=== PATIENT | male | born 1950 | race Caucasian/White ===

== ENCOUNTER 2016-09-02 10:50 | Emergency (ER) | payer BC ==
[2016-09-02] MEDS ORDERED: Nitroglycerin TAB 0.4 MG* 0.4 MG TAB SL ONE (11:24)
[2016-09-02] MEDS ORDERED: Aspirin Low Dose CHEW TAB* 81 MG PO ONE (11:24)
[2016-09-02] MEDS ORDERED: NS 0.9% 1000 ML* 1,000 ML IV SCH (11:30)
[2016-09-02 11:31] LABS: Hematocrit 44 % (42-52); Hemoglobin 14.6 g/dl (14.0-18.0); Mean Corpuscular HGB Conc 33 g/dl (31-36); Mean Corpuscular Hemoglobin 29 pg (27-31); Mean Corpuscular Volume 88 fL (80-94); Mean Platelet Volume 8 um3 (7.4-10.4); Red Blood Count 5.05 10^6/ul (4.0-5.4); Red Cell Distribution Width 13 % (10.5-15); White Blood Count 4.3 10^3/ul (3.5-10.8)
[2016-09-02 11:43] LABS: Albumin 4.4 g/dL (3.2-5.2); BUN/Creatinine Ratio 20.9 (8-20); C Reactive Protein 1.48 mg/L (< 5.00); Calcium 9.4 mg/dL (8.6-10.3); EGFR African American 107.5 (>60); EGFR Non-African American 83.6 (>60); Globulin 3.3 g/dL (2-4); Magnesium 2.1 mg/dL (1.9-2.7); Potassium 4.2 mmol/L (3.5-5.0); Total Bilirubin 0.8 mg/dL (0.2-1.0); Total Protein 7.7 g/dL (6.4-8.9)
[2016-09-02 11:45] LABS: Troponin I 0.01 ng/mL (<0.04)
[2016-09-02 12:14] LABS: TSH (Thyroid Stimulating Horm) 3.26 mcIU/mL (0.34-5.60)
--- NOTE | 2016-09-02 12:19 | RAD ---
HISTORY: Chest pain COMPARISONS: May 25, 2016 VIEWS:1: Single frontal portable view of the chest at 11:30 AM FINDINGS: LINES AND TUBES: None. CARDIOMEDIASTINAL SILHOUETTE: The cardiomediastinal silhouette is normal for portable technique. PLEURA: The costophrenic angles are sharp. No pleural abnormalities are noted. LUNG PARENCHYMA: The lungs are clear. ABDOMEN: The upper abdomen is clear. There is no subphrenic gas. BONES AND SOFT TISSUES: No bone or soft tissue abnormalities are noted. IMPRESSION: NO ACTIVE CARDIOPULMONARY DISEASE.
--- NOTE | 2016-09-02 12:31 | ED ---
Primo Santizo Salem, scribed for Jj Bourgeois MD on 09/02/16 at 1203 . HPI Chest Pain - HPI Summary HPI Summary: Patient is a 66 y/o male who presents to the ED with CP since last night. His pain started in the left side of his chest and moved to the central chest area. It is currently localized in his neck and shoulder. He rates the pain as a 5/10 and denies SOB, diaphoresis, abd pain or nausea. Pt describes sx as similar to previous set of symptoms associated with DE. He reports his previous DE was 3 years ago in May. He reports HTN, HLD, but denies DM. 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 PSHx significant for stent placement. - History of Current Complaint Chief Complaint: EDChestPainROMI Time Seen by Provider: 09/02/16 11:12 Hx Obtained From: Patient Onset/Duration: Started Days Ago Pain Intensity: 4 Pain Scale Used: 0-10 Numeric Chest Pain Location: Mid Sternal, Left Anterior - Initially. Chest Pain Radiates: Yes Chest Pain Radiates To:: Shoulder, Neck Aggravating Factor(s): Nothing Alleviating Factor(s): Other: - ASA 81mg. Associated Signs and Symptoms: Negative: Shortness of Breath, Diaphoresis, Nausea, Abdominal Pain - Allergy/Home Medications Allergies/Adverse Reactions: Allergies Allergy/AdvReac Type Severity Reaction Status Date / Time Atorvastatin [From Lipitor] AdvReac Severe extreme Verified 06/21/16 13:26 fatigue erythromycin Allergy Severe turns red Uncoded 06/21/16 13:26 PMH/Surg Hx/FS Hx/Imm Hx Endocrine/Hematology History: Reports: Hx Diabetes - borderline Denies: Hx Thyroid Disease, Hx Anemia Cardiovascular History: Reports: Hx Hypercholesterolemia, Hx Hypertension Denies: Hx Aneurysm, Hx Angina, Hx Cardiac Arrest Musculoskeletal History: Reports: Hx Fibromyalgia, Hx Gout Sensory History: Reports: Hx Contacts or Glasses Denies: Hx Hearing Aid Opthamlomology History: Reports: Hx Contacts or Glasses Neurological History: Reports: Hx Nerve Disease - fibromyalgia, Hx Seizures, Other Neuro Impairments/Disorders - DJD Denies: Hx Headaches - Surgical History Surgery Procedure, Year, and Place: hernia, cardiac stent Infectious Disease History: No Infectious Disease History: Denies: Traveled Outside the [place] in Last 30 Days - Family History Known Family History: Negative: Hypertension - Social History Alcohol Use: None Substance Use Type: Reports: None Smoking Status (MU): Never Smoked Tobacco Have You Smoked in the Last Year: No Review of Systems Positive: Fever. Negative: Skin Diaphoresis Negative: Shortness Of Breath Negative: Abdominal Pain, Nausea All Other Systems Reviewed And Are Negative: Yes Physical Exam Triage Information Reviewed: Yes Vital Signs On Initial Exam: Initial Vitals Temp Pulse Resp BP Pulse Ox 96.9 F 68 15 141/69 100 09/02/16 10:52 09/02/16 10:52 09/02/16 10:52 09/02/16 10:52 09/02/16 10:52 Vital Signs Reviewed: Yes Appearance: Positive: Well-Appearing, No Pain Distress - NAD. Skin: Positive: Warm, Skin Color Reflects Adequate Perfusion, Dry Head/Face: Positive: Normal Head/Face Inspection Eyes: Positive: EOMI, TRISTAN ENT: Positive: Normal ENT inspection Neck: Positive: Supple, Nontender Respiratory/Lung Sounds: Positive: Clear to Auscultation, Breath Sounds Present Cardiovascular: Positive: RRR Bowel Sounds: Positive: Present Musculoskeletal: Positive: Normal, Strength/ROM Intact. Negative: Edema Left, Edema Right Neurological: Positive: Normal, Sensory/Motor Intact, Alert, Oriented to Person Place, Time Psychiatric: Positive: Affect/Mood Appropriate - Stevenson Coma Scale Coma Scale Total: 15 Diagnostics - Vital Signs Vital Signs Temp Pulse Resp BP Pulse Ox 09/02/16 11:05 64 96 09/02/16 11:03 133/71 09/02/16 10:52 96.9 F 68 15 141/69 100 - Laboratory Lab Results: Lab Results 09/02/16 09/02/16 09/02/16 Range/Units 11:15 11:15 11:15 WBC 4.3 (3.5-10.8) 10^3/ul RBC 5.05 (4.0-5.4) 10^6/ul Hgb 14.6 (14.0-18.0) g/dl Hct 44 (42-52) % MCV 88 (80-94) fL MCH 29 (27-31) pg MCHC 33 (31-36) g/dl RDW 13 (10.5-15) % Plt Count 223 (150-450) 10^3/ul MPV 8 (7.4-10.4) um3 Neut % (Auto) 48.6 (38-83) % Lymph % (Auto) 37.0 (25-47) % [place] % (Auto) 7.4 (1-9) % Eos % (Auto) 5.8 (0-6) % Baso % (Auto) 1.2 (0-2) % Absolute Neuts (auto) 2.1 (1.5-7.7) 10^3/ul Absolute Lymphs (auto) 1.6 (1.0-4.8) 10^3/ul Absolute Monos (auto) 0.3 (0-0.8) 10^3/ul Absolute Eos (auto) 0.3 (0-0.6) 10^3/ul Absolute Basos (auto) 0.1 (0-0.2) 10^3/ul Absolute Nucleated RBC 0 10^3/ul Nucleated RBC % 0 INR (Anticoag Therapy) 0.89 (0.89-1.11) APTT 30.9 (26.0-36.3) seconds D-Dimer, Quantitative < 200 (Less Than 230) ng/mL Sodium 132 L (133-145) mmol/L Potassium 4.2 (3.5-5.0) mmol/L Chloride 102 (101-111) mmol/L Carbon Dioxide 28 (22-32) mmol/L Anion Gap 2 (2-11) mmol/L BUN 19 (6-24) mg/dL Creatinine 0.91 (0.67-1.17) mg/dL Est GFR ( Amer) 107.5 (>60) Est GFR (Non-Af Amer) 83.6 (>60) BUN/Creatinine Ratio 20.9 H (8-20) Glucose 161 H (70-100) mg/dL Calcium 9.4 (8.6-10.3) mg/dL Magnesium 2.1 (1.9-2.7) mg/dL Total Bilirubin 0.80 (0.2-1.0) mg/dL AST 26 (13-39) U/L ALT 26 (7-52) U/L Alkaline Phosphatase 78 (34-104) U/L Total Creatine Kinase 156 (10-223) U/L CK-MB (CK-2) 2.9 (0.6-6.3) ng/mL Troponin I 0.01 (<0.04) ng/mL C-Reactive Protein 1.48 (< 5.00) mg/L B-Natriuretic Peptide ( - 100) pg/mL Total Protein 7.7 (6.4-8.9) g/dL Albumin 4.4 (3.2-5.2) g/dL Globulin 3.3 (2-4) g/dL Albumin/Globulin Ratio 1.3 (1-3) Lipase 31 (11.0-82.0) U/L TSH Pending 09/02/16 Range/Units 11:15 WBC (3.5-10.8) 10^3/ul RBC (4.0-5.4) 10^6/ul Hgb (14.0-18.0) g/dl Hct (42-52) % MCV (80-94) fL MCH (27-31) pg MCHC (31-36) g/dl RDW (10.5-15) % Plt Count (150-450) 10^3/ul MPV (7.4-10.4) um3 Neut % (Auto) (38-83) % Lymph % (Auto) (25-47) % [place] % (Auto) (1-9) % Eos % (Auto) (0-6) % Baso % (Auto) (0-2) % Absolute Neuts (auto) (1.5-7.7) 10^3/ul Absolute Lymphs (auto) (1.0-4.8) 10^3/ul Absolute Monos (auto) (0-0.8) 10^3/ul Absolute Eos (auto) (0-0.6) 10^3/ul Absolute Basos (auto) (0-0.2) 10^3/ul Absolute Nucleated RBC 10^3/ul Nucleated RBC % INR (Anticoag Therapy) (0.89-1.11) APTT (26.0-36.3) seconds D-Dimer, Quantitative (Less Than 230) ng/mL Sodium (133-145) mmol/L Potassium (3.5-5.0) mmol/L Chloride (101-111) mmol/L Carbon Dioxide (22-32) mmol/L Anion Gap (2-11) mmol/L BUN (6-24) mg/dL Creatinine (0.67-1.17) mg/dL Est GFR ( Amer) (>60) Est GFR (Non-Af Amer) (>60) BUN/Creatinine Ratio (8-20) Glucose (70-100) mg/dL Calcium (8.6-10.3) mg/dL Magnesium (1.9-2.7) mg/dL Total Bilirubin (0.2-1.0) mg/dL AST (13-39) U/L ALT (7-52) U/L Alkaline Phosphatase (34-104) U/L Total Creatine Kinase (10-223) U/L CK-MB (CK-2) (0.6-6.3) ng/mL Troponin I (<0.04) ng/mL C-Reactive Protein (< 5.00) mg/L B-Natriuretic Peptide 19 ( - 100) pg/mL Total Protein (6.4-8.9) g/dL Albumin (3.2-5.2) g/dL Globulin (2-4) g/dL Albumin/Globulin Ratio (1-3) Lipase (11.0-82.0) U/L TSH Result Diagrams: 09/02/16 11:15 09/02/16 11:15 Lab Statement: Any lab studies that have been ordered have been reviewed, and results considered in the medical decision making process. Chest Pain Course/Dx - Course Assessment/Plan: PAIN IMPROVED IN ED WITH NTG SL. ADMIT HOSPITALIST STABLE. - Diagnoses Provider Diagnoses: Chest pain Discharge - Discharge Plan Condition: Stable Disposition: ADMITTED TO [facility] Referrals: Keri Hawkins MD [Primary Care Provider] - The documentation as recorded by the Primo garcia Salem accurately reflects the service I personally performed and the decisions made by , Jj Bourgeois MD.
[2016-09-02 13:17] VITALS: BP 123/57
--- NOTE | 2016-09-02 13:51 | ED ---
Primo Santizo Salem, scribed for Jj Bourgeois MD on 09/02/16 at 1334 . Progress - Results/Orders Results/Orders: CXR: IMPRESSION: NO ACTIVE CARDIOPULMONARY DISEASE. EKG @ 1053: Sinus bradycardia @ [address] No Ectopy. Course/Dx - Diagnoses Provider Diagnoses: Chest pain The documentation as recorded by the Primo garcia Salem accurately reflects the service I personally performed and the decisions made by , Jj Bourgeois MD.
--- NOTE | 2016-09-02 14:20 | ED ---
Progress - Progress Note Progress Note: HOSPITALIST SAW PATIENT TO ADMIT HIM. HE DECLINED ADMISSION. 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 DISCHARGE HOME IMPROVED. - Results/Orders Results/Orders: CXR: IMPRESSION: NO ACTIVE CARDIOPULMONARY DISEASE. EKG @ 1053: Sinus bradycardia @ [address] No Ectopy. Course/Dx - Diagnoses Provider Diagnoses: Chest pain
== END 2016-09-02 15:00 | disposition home or self-care (01) ==
LOC: ED 10:50 → UNDOADMOB 12:22 → MEDTELE 12:22 → ED 15:00
DX: R07.9 Chest pain, unspecified (principal); I10 Essential (primary) hypertension; I25.2 Old myocardial infarction; E78.5 Hyperlipidemia, unspecified; Z79.82 Long term (current) use of aspirin; M79.7 Fibromyalgia; F17.200 Nicotine dependence, unspecified, uncomplicated
CPT/HCPCS: 36415; 71010; 80053; 82550; 82553; 83605; 83690; 83735; 83880; 84443; 84484; 85025; 85379; 85610; 85730; 86140; 93005; 99284; A9270-GY

== ENCOUNTER 2019-07-19 10:01 | Emergency (ER) | payer MEDICARE, BC ==
[2019-07-19 10:16] VITALS: BP 145/90
--- NOTE | 2019-07-19 10:30 | UC ---
Respiratory Complaint HPI - HPI Summary HPI Summary: 4 weeks of worsening cough and nasal congestion in the past 8-9 days patient has developed right maxillary sinus pain and ear pressure - History of Current Complaint Chief Complaint: UCGeneralIllness Stated Complaint: COUGH SNEEZING HEADACHES BODYACHES Time Seen by Provider: 07/19/19 10:15 Hx Obtained From: Patient Onset/Duration: Gradual Onset, Lasting Weeks - 4, Worse Since - 8-9 days Timing: Constant Pain Intensity: 4 Pain Scale Used: 0-10 Numeric Character: Cough: Nonproductive Aggravating Factors: Nothing Alleviating Factors: Nothing Associated Signs And Symptoms: Positive: URI, Nasal Congestion, Sinus Discomfort - Allergies/Home Medications Allergies/Adverse Reactions: Allergies Allergy/AdvReac Type Severity Reaction Status Date / Time atorvastatin Allergy Fatigue Verified 07/19/19 10:17 erythromycin Allergy Severe turns red Uncoded 07/19/19 10:17 Home Medications: Home Medications Acetaminophen/Diphenhydramine [Tylenol Pm Ex-Strength Caplet] 1 each PO DAILY PRN MDD 4 07/19/19 [History Confirmed 07/19/19] Famotidine TAB* [Pepcid 20 MG TAB*] 20 mg PO DAILY PRN 07/19/19 [History Confirmed 07/19/19] Multivitamins/Minerals TAB* [Thera M Plus TAB*] 1 tab PO DAILY 07/19/19 [ History Confirmed 07/19/19] PMH/Surg Hx/FS Hx/Imm Hx Previously Healthy: No Endocrine History: Dyslipidemia Cardiovascular History: Myocardial Infarction GI/ History: Gastroesophageal Reflux Psychological History: Other Other Psychological History: chronic pain - Surgical History Surgical History: Yes Surgery Procedure, Year, and Place: hernia, cardiac stent - Family History Known Family History: Negative: Hypertension - Social History Occupation: Retired Lives: With Family Alcohol Use: None Substance Use Type: None Smoking Status (MU): Never Smoked Tobacco Have You Smoked in the Last Year: No - Immunization History Most Recent Influenza Vaccination: 04/27 Most Recent Tetanus Shot: unknown Most Recent Pneumonia Vaccination: n/a Hx Tetanus, Diphtheria Vaccination: Yes Vaccination Up to Date: Yes Review of Systems All Other Systems Reviewed And Are Negative: Yes Constitutional: Positive: Negative Skin: Positive: Negative Eyes: Positive: Negative ENT: Positive: Ear Ache, Sinus Congestion Respiratory: Positive: Cough Cardiovascular: Positive: Negative Gastrointestinal: Positive: Negative Genitourinary: Positive: Negative Motor: Positive: Negative Neurovascular: Positive: Negative Musculoskeletal: Positive: Negative Neurological: Positive: Negative Psychological: Positive: Negative Is Patient Immunocompromised?: No Physical Exam Triage Information Reviewed: Yes Appearance: No Pain Distress, Well-Nourished, Ill-Appearing - mild Vital Signs: Initial Vital Signs Temp 98 F 07/19/19 10:14 Pulse 76 07/19/19 10:14 Resp 15 07/19/19 10:14 BP 145/90 07/19/19 10:14 Pulse Ox 100 07/19/19 10:14 Vital Signs Reviewed: Yes Eye Exam: Normal Eyes: Positive: Conjunctiva Clear ENT Exam: Normal ENT: Positive: Normal ENT inspection, Hearing grossly normal, Pharynx normal, Nasal congestion, TMs normal, Muffled voice, Sinus tenderness, Uvula midline. Negative: Tonsillar swelling, Tonsillar exudate, Trismus, Hoarse voice, Dental tenderness Dental Exam: Normal Neck exam: Normal Neck: Positive: Supple, Nontender, No Lymphadenopathy Respiratory Exam: Normal Respiratory: Positive: Chest non-tender, Lungs clear, Normal breath sounds, No respiratory distress, No accessory muscle use Cardiovascular Exam: Normal Cardiovascular: Positive: RRR, No Murmur, Pulses Normal, Brisk Capillary Refill Musculoskeletal Exam: Normal Musculoskeletal: Positive: Strength Intact, ROM Intact, No Edema Neurological Exam: Normal Neurological: Positive: Alert, Muscle Tone Normal Psychological Exam: Normal Skin Exam: Normal Respiratory Course/Dx - Course Course Of Treatment: increase fluids, flonase, augmentin follow blood pressure with pcp - Differential Dx/Diagnosis Provider Diagnosis: Viral URI with cough, Sinusitis, Hypertension Discharge ED - Sign-Out/Discharge Documenting (check all that apply): Patient Departure All imaging exams completed and their final reports reviewed: No Studies - Discharge Plan Condition: Stable Disposition: HOME Prescriptions: Amoxicillin/Clavulanate TAB* [Augmentin TAB 875*] 875 mg PO BID #20 tab Fluticasone NASAL SPRAY 50MCG* [Flonase NASAL SPRAY 50MCG*] 2 spray BOTH NARES DAILY #1 btl Patient Education Materials: Sinusitis (ED), Upper Respiratory Infection (ED), Hypertension (ED) Referrals: Michaela Johnson DO [Primary Care Provider] - 1 Week - Billing Disposition and Condition Condition: STABLE Disposition: Home - Attestation Statements Provider Attestation: I was available for consult. This patient was seen by the CASSANDRA. The patient was not presented to, seen by, or examined by me. -Casandra
== END 2019-07-19 10:43 | disposition home or self-care (01) ==
LOC: UCEAST 10:01
DX: J06.9 Acute upper respiratory infection, unspecified (principal); R05 Cough; J32.9 Chronic sinusitis, unspecified; I10 Essential (primary) hypertension; I25.2 Old myocardial infarction; Z88.8 Allergy status to other drugs, medicaments and biological substances; Z88.1 Allergy status to other antibiotic agents
CPT/HCPCS: 99212; G0463

== ENCOUNTER 2019-09-23 11:14 | Emergency (ER) | payer MEDICARE, BC ==
[2019-09-23 14:10] VITALS: BP 136/86
--- NOTE | 2019-09-23 15:14 | UC ---
General HPI - HPI Summary HPI Summary: 61-year-old male comes in with a chief complaint of left-sided facial weakness and numbness. Noticed this 2 days ago. Denies any change in vision or speech or any weakness or numbness in the arms. Last week he did have some left ear fullness and he flushed out his left ear and got some ear wax out. Does continue to have some left ear pain. No upper respiratory tract infection symptoms. He does notice that his left eye feels dry. He is outside a lot and he often gets tick bites. - History of Current Complaint Chief Complaint: UCGeneralIllness Stated Complaint: FACIAL MUSCLE TROUBLE Time Seen by Provider: 09/23/19 14:47 Pain Intensity: 0 - Allergy/Home Medications Allergies/Adverse Reactions: Allergies Allergy/AdvReac Type Severity Reaction Status Date / Time atorvastatin Allergy Fatigue Verified 09/23/19 11:24 erythromycin Allergy Severe turns red Uncoded 09/23/19 11:24 Home Medications: Home Medications traZODone TAB* [Desyrel TAB*] 50 mg PO BEDTIME 09/23/12 [History Confirmed 09/22] Aspirin EC TAB* [Ecotrin EC Low Dose 81 MG*] 81 mg PO DAILY 02/17/14 [History Confirmed 09/23/19] DULoxetine DR CAP* [Cymbalta CAP*] 30 mg PO DAILY 05/25/16 [History Confirmed ] Enalapril TAB* [Vasotec TAB*] 20 mg PO DAILY 05/25/16 [History Confirmed ] Metoprolol Succinate XL TAB* [Toprol XL TAB*] 50 mg PO DAILY 05/25/16 [History Confirmed 09/23/19] Nitroglycerin TAB 0.4 MG* 0.4 mg SL Q5M PRN 05/25/16 [History Confirmed 09/23/19 ] Pravastatin (NF) [Pravachol (NF)] 20 mg PO DAILY 05/25/16 [History Confirmed 05/04] Ibuprofen TAB* [Advil TAB*] 400 mg PO Q6HR 06/21/16 [History Confirmed 09/23/19] Cinnamon Bark 0.5 teasp PO DAILY 09/06/16 [History Confirmed 09/23/19] Acetaminophen/Diphenhydramine [Tylenol Pm Ex-Strength Caplet] 1 each PO DAILY PRN MDD 4 07/19/19 [History Confirmed 09/23/19] Famotidine TAB* [Pepcid 20 MG TAB*] 20 mg PO DAILY PRN 07/19/19 [History Confirmed 09/23/19] Multivitamins/Minerals TAB* [Thera M Plus TAB*] 1 tab PO DAILY 07/19/19 [ History Confirmed 09/23/19] Glycerin/Propylene Glycol [Soothe] 1 drop OPHTHALMIC DAILY #1 bottle 09/23/19 [ Rx] Ofloxacin 0.3% (Ear Drop)* [Floxin 0.3% OTIC.SANDEEP (Ear Drop)] 5 drop LEFT EAR BID #1 btl 09/23/19 [Rx] Valacyclovir HCl [Valacyclovir] 1,000 mg PO TID #21 tablet 09/23/19 [Rx] predniSONE 20 mg TAB [Deltasone 20 MG TAB*] 60 mg PO DAILY #21 tab 09/23/19 [Rx] PMH/Surg Hx/FS Hx/Imm Hx Previously Healthy: Yes Endocrine History: Dyslipidemia Cardiovascular History: Cardiac Disease, Hypertension GI/ History: Gastroesophageal Reflux - Surgical History Surgical History: Yes Surgery Procedure, Year, and Place: hernia, cardiac stent - Family History Known Family History: Negative: Hypertension - Social History Alcohol Use: None Substance Use Type: None Smoking Status (MU): Never Smoked Tobacco Have You Smoked in the Last Year: No - Immunization History Most Recent Influenza Vaccination: 04/27 Most Recent Tetanus Shot: unknown Most Recent Pneumonia Vaccination: n/a Hx Tetanus, Diphtheria Vaccination: Yes Vaccination Up to Date: Yes Review of Systems All Other Systems Reviewed And Are Negative: Yes Constitutional: Positive: Negative Skin: Positive: Negative Eyes: Positive: Other - SEE HPI ENT: Positive: Ear Ache Respiratory: Positive: Negative Cardiovascular: Positive: Negative Gastrointestinal: Positive: Negative Motor: Positive: Other - SEE HPI Neurovascular: Positive: Other - SEE HPI Musculoskeletal: Positive: Other: - SEE HPI Neurological/Mental Status: Positive: Other - SEE HPI Psychological: Positive: Negative Is Patient Immunocompromised?: No Physical Exam Triage Information Reviewed: Yes Appearance: Well-Appearing, No Pain Distress, Well-Nourished Vital Signs: Initial Vital Signs Temp 98 F 09/23/19 11:21 Pulse 71 09/23/19 11:21 Resp 18 09/23/19 11:21 BP 148/79 09/23/19 11:21 Pulse Ox 100 09/23/19 11:21 Vital Signs Reviewed: Yes Eyes: Positive: Other: - Left eyelid drifts open. ENT: Positive: Pharynx normal, Other - Patient does have mild tenderness to palpation of the left tragus. Both TMs appear normal. No rash on the side of the face. Neck: Positive: Supple Respiratory: Positive: Lungs clear, Normal breath sounds, No respiratory distress Cardiovascular: Positive: RRR Musculoskeletal: Positive: Other: - When patient raises his eyebrows the right eyebrow goes up higher. Than the left left eyelid does drift open. Decreased sensation the left side of the face and also has facial droop on the left side of the face. Neurological: Positive: Alert, Other: - Arms and legs have full strength normal sensation. Speech is normal. Psychological: Positive: Age Appropriate Behavior Skin Exam: Normal - No rash Course/Dx - Course Course Of Treatment: Will treat with prednisone 60 mg a day and valacyclovir 1 g 3 times a day for 7 days for left-sided Aquino's palsy. Also recommended artificial tears during the day and Soothe at night. [facility]. He has an appointment scheduled with his primary care physician this week September 26, 2019 he's trying to keep that appointment. Lyme screen was drawn here as the patient does have a history of getting bit by ticks and Lyme disease can be a cause for Aquino's palsy. Also to treat with ofloxacin eardrops due to the left ear pain and mild tenderness to palpation of the tragus. We discussed the signs and symptoms of stroke which the patient does not have at this time and that if he didn't get any sinus symptoms of stroke he get reevaluated again right away. - Diagnoses Provider Diagnosis: Left-sided Aquino's palsy, Left ear pain Discharge ED - Sign-Out/Discharge Documenting (check all that apply): Patient Departure All imaging exams completed and their final reports reviewed: No Studies - Discharge Plan Condition: Stable Disposition: HOME Prescriptions: Glycerin/Propylene Glycol [Soothe] 1 drop OPHTHALMIC DAILY #1 bottle Ofloxacin 0.3% (Ear Drop)* [Floxin 0.3% OTIC.SANDEEP (Ear Drop)] 5 drop LEFT EAR BID #1 btl predniSONE 20 mg TAB [Deltasone 20 MG TAB*] 60 mg PO DAILY #21 tab Valacyclovir HCl [Valacyclovir] 1,000 mg PO TID #21 tablet Patient Education Materials: Aquino Palsy (ED), Earache (ED) Referrals: Michaela Johnson DO [Primary Care Provider] - [facility] [place] [Provider Group] Additional Instructions: FOLLOW UP WITH YOUR DOCTOR ON 09/26/19 SCHEDULED. FOLLOW UP WITH OPHTHALMOLOGY FOR EYE CARE. Use the antibiotic eardrops as directed. GET REEVALUATED SOONER IF NOT IMPROVED OR WORSE OR ANY QUESTIONS OR CONCERNS. - Billing Disposition and Condition Condition: STABLE Disposition: Home
== END 2019-09-23 15:43 | disposition home or self-care (01) ==
LOC: UCEAST 11:14
DX: G51.0 Bell's palsy (principal); H92.02 Otalgia, left ear; E78.5 Hyperlipidemia, unspecified; I10 Essential (primary) hypertension; I51.9 Heart disease, unspecified; K21.9 Gastro-esophageal reflux disease without esophagitis; Z88.8 Allergy status to other drugs, medicaments and biological substances; Z88.1 Allergy status to other antibiotic agents; Z79.82 Long term (current) use of aspirin; Z79.899 Other long term (current) drug therapy
CPT/HCPCS: 36415; 86618; 99212; G0463